=== PATIENT | female | born 1965 | race Caucasian/White ===

== ENCOUNTER 2022-03-20 09:40 | Emergency (ER) | payer BC ==
[~2022-03-20] VITALS: Ht 167.6 cm; Wt 63.5 kg
--- NOTE | 2022-03-20 10:05 | NUR ---
Patient seen by physician.
--- NOTE | 2022-03-20 10:20 | NUR ---
Wound irrigated with saline as ordered. Laceration kit and xylocaine at bedside.
[2022-03-20] MEDS ORDERED: LIDOCAINE HCL 2% 20 ML VIAL ONE (10:22)
[2022-03-20] MEDS ORDERED: TDAP DIPH,PERTUSS,TET VAC/PF 0.5 ML DISP.SYRIN IM ONE (10:23)
[2022-03-20] MEDS: LIDOCAINE HCL 2% 20 ML VIAL IJ ONE (10:30)
[2022-03-20] MEDS: TDAP DIPH,PERTUSS,TET VAC/PF 0.5 ML DISP.SYRIN IM ONE (10:30)
[2022-03-20] MEDS ORDERED: ACET-2154 PO (10:49)
--- NOTE | 2022-03-20 10:50 | NUR ---
Triple ointment applied as ordered finger covered with dry dressing finger immobilizer applied. Patient tolerated well.
[2022-03-20] MEDS ORDERED: NEOMY/BACITRA/POLYMYXIN B OINT UD PACKET TP ONE (10:54)
--- NOTE | 2022-03-20 11:12 | NUR ---
DCD instructions given to pt. who verbalized understanding. Patient left room ambulatory [id number]. no c/of pain no bleeding at affected area.
[2022-03-20] MEDS: NEOMY/BACITRA/POLYMYXIN B OINT UD PACKET TP ONE (11:13)
== END 2022-03-20 11:18 | disposition home or self-care (01) ==
LOC: ER 09:40
DX: S61.210A Laceration without foreign body of right index finger without damage to nail, initial encounter (principal); W25.XXXA Contact with sharp glass, initial encounter; Y93.G1 Activity, food preparation and clean up; Y92.010 Kitchen of single-family (private) house as the place of occurrence of the external cause
CPT/HCPCS: 99283; 73140; 90715; 90471; 12001; J3490; A4663

== ENCOUNTER 2022-03-22 10:13 | Emergency (ER) | payer BC ==
[~2022-03-22] VITALS: Ht 167.6 cm; Wt 63.5 kg
[~2022-03-22 10:13] MED LIST: ACET-2154 PO
--- NOTE | 2022-03-22 10:25 | NUR ---
patient brought into room. Dr. haney will see patient at this time.
[2022-03-22] MEDS ORDERED: VANCOMYCIN IV 1,000 MG in IV DEXTROSE 5% 250 ML IV ONE (10:30)
[2022-03-22] MEDS ORDERED: KETOROLAC TROMETHAMINE 30 MG INJ IVP ONE (10:30)
[2022-03-22] MEDS ORDERED: IBUP100T54 PO (10:34)
[2022-03-22] MEDS ORDERED: CEPH250C PO (10:34)
[2022-03-22 10:46] LABS: MEAN CORPUSCULAR HEMOGLOBIN 34.7 uug (24.7-32.8); MEAN CORPUSCULAR VOLUME 99.3 fL (75.5-95.3); PLATELET COUNT (AUTO) 283 K/uL (179-408)
[2022-03-22 10:54] LABS: CREATININE 0.6 mg/dL (0.6-1.3); POTASSIUM 4.2 mmol/L (3.5-5.1)
[2022-03-22] MEDS ORDERED: KETOROLAC TROMETHAMINE 30 MG INJ ONE (10:56)
[2022-03-22] MEDS ORDERED: VANCOMYCIN IV 200 ML ONE (10:57)
[2022-03-22] MEDS ORDERED: SULF1TAB48 PO (11:17)
--- NOTE | 2022-03-22 11:28 | NUR ---
dr. haney took sutures out allowed to drain and soaked with hydrogen peroxide. DC instructions ready waiting for abx to finish infusing.
--- NOTE | 2022-03-22 12:20 | NUR ---
DC IV line and discharge paperwork [facility]
== END 2022-03-22 12:56 | disposition home or self-care (01) ==
LOC: ER 10:13
DX: S61.210D Laceration without foreign body of right index finger without damage to nail, subsequent encounter (principal); L03.011 Cellulitis of right finger; X58.XXXD Exposure to other specified factors, subsequent encounter; D72.829 Elevated white blood cell count, unspecified; R03.0 Elevated blood-pressure reading, without diagnosis of hypertension
CPT/HCPCS: 99284; 96365; 96375; 80048; 85025; 87070; 36415; J1885; J3370; 87077; A4663